=== PATIENT | male | born 1975 | race Two or more races ===

== ENCOUNTER 2017-10-19 15:07 | Emergency (ER) | payer OTHER ==
[~2017-10-19] VITALS: Ht 175.3 cm; Wt 76.9 kg
[2017-10-19 15:16] VITALS: BP 132/90
[2017-10-19] MEDS ORDERED: LIDOCAINE-MPF 2%, 2ML ONE (15:30)
[2017-10-19] MEDS ORDERED: DIPH,PERTUSS(ACELL),TET VAC/PF 0.5 ML IM-VACC ONE ×2 (15:30→15:36)
[2017-10-19] MEDS ORDERED: LIDOCAINE 2%, 10ML INFIL ONE (15:30)
== END 2017-10-19 16:23 | disposition home or self-care (01) ==
LOC: ED 15:45
DX: S01.01XA Laceration without foreign body of scalp, initial encounter (principal); W20.8XXA Other cause of strike by thrown, projected or falling object, initial encounter; Y93.89 Activity, other specified; Y99.0 Civilian activity done for income or pay; Y92.69 Other specified industrial and construction area as the place of occurrence of the external cause
CPT/HCPCS: 12032; 90471; 90715

== ENCOUNTER 2017-10-26 17:18 | Emergency (ER) | payer OTHER ==
[~2017-10-26] VITALS: Ht 175.3 cm; Wt 78.4 kg
[2017-10-26 17:26] VITALS: BP 121/80
== END 2017-10-26 19:07 | disposition home or self-care (01) ==
LOC: ED 19:01
DX: S01.01XD Laceration without foreign body of scalp, subsequent encounter (principal); Z87.891 Personal history of nicotine dependence; X58.XXXD Exposure to other specified factors, subsequent encounter
CPT/HCPCS: 99281